=== PATIENT | male | born 1945 | race American Indian/Alaskan Native ===

== ENCOUNTER 2021-08-02 07:06 | Day surgery (SDC) | payer MEDICARE ==
[2021-08-02] MEDS ORDERED: SODIUM CHLORIDE 0.9% 500 ML 500 ML IV SCH (08:00)
[2021-08-02 08:13] LABS: Hematocrit 45.7 % (35.5-45.6); Hemoglobin 14.5 gm/dl (11.8-15.2); Mean Corpuscular HGB Conc 32 % (32-34); Mean Corpuscular Volume 84 fl (84-94); Platelet Count 192 K/mm3 (140-440); Red Blood Count 5.46 M/mm3 (3.65-5.03); Red Cell Distribution Width 15.3 % (13.2-15.2)
[2021-08-02 08:24] LABS: INR 0.92 (0.87-1.13)
[2021-08-02 08:25] LABS: Partial Thromboplastin Time 28.3 Sec. (24.2-36.6)
[2021-08-02 08:26] LABS: Blood Urea Nitrogen 19 mg/dL (9-20); Hemolysis Index 48
[2021-08-02 08:27] LABS: BUN/Creatinine Ratio 32
[2021-08-02] MEDS ORDERED: ceFAZolin/Water 2 GM/20 ML 2 GM/20 ML SYRINGE IV ONE (09:04)
[2021-08-02] MEDS ORDERED: LIDOCAINE 2%/EPINEPHRINE 1:200,000 VIAL (20 ML) INFILTRATI ONE ×2 (09:04→09:45)
[2021-08-02] MEDS ORDERED: HEPARIN/NS 5000 UNIT/500ML 1,500 ML IR ONE (09:05)
--- NOTE | 2021-08-02 09:11 | Short Stay Summary ---
Short Stay Documentation Date of service: 08/02/21 Narrative H&P: 75-year-old male with COPD and PVD with critical limb ischemia of the right lower extremity with nonhealing wound of the right forefoot which has been present for months. Patient presents for revascularization. - History Principal diagnosis: PVD with ulceration H&P: obtained from office - Allergies and Medications Current Medications: Allergies No Known Allergies Allergy (Unverified 08/02/21 07:39) Active Medications Sodium Chloride (Nacl 0.9% 500 Ml) 500 mls @ 50 mls/hr IV DIRECT ARVIN - Physical exam General appearance: no acute distress Lungs: Normal air movement, Other (Minimal wheezing, massive improvement from baseline) Gastrointestinal: normal Extremities: normal temperature, normal color - Brief post op/procedure progress note Date of procedure: 08/02/21 Pre-op diagnosis: PVD with ulceration Post-op diagnosis: same Procedure: 1. Ultrasound guided access of the left common femoral artery 2. Angiography of the left lower extremity 3. Selection of the abdominal aorta with angiography 4. Selection of the right external iliac artery and proximal superficial femoral artery 5. Angiography of the right lower extremity 6. Selection of the right popliteal artery with angiography 7. Fluoroscopic guided placement of a 6 mm spider EPD in the right popliteal artery 8. Shockwave lithoplasty of the right superficial femoral artery and above-knee popliteal artery with a 5 mm x 60 mm balloon 9. Atherectomy of the right proximal, mid and distal superficial femoral artery with a BlueLithiumkone M device 10. Angioplasty of the right superficial femoral artery with a 5 mm x 200 mm [place] angioplasty balloon 11. Angioplasty of the right aoajw-icq-pcqq popliteal artery with a 4 mm x 150 mm [place] angioplasty balloon 12. Closure of the left common femoral artery with manual pressure Anesthesia: local Surgeon: JL HUERTA Estimated blood loss: minimal Condition: stable - Hospital course Hospital course: Sheath was removed and pressure was held until hemostasis was achieved. Pressure dressing applied. Patient kept for 4 hours afterwards without issue. Discharged without issue. 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
[2021-08-02] MEDS ORDERED: MIDAZOLAM 2 MG/2 ML INJ ONE (09:32)
[2021-08-02] MEDS ORDERED: fentaNYL 100 MCG/2 ML INJ ONE (09:32)
[2021-08-02] MEDS: HEPARIN 10,000 UNITS/10 ML VIAL ONE ×2 (09:57→10:46)
--- NOTE | 2021-08-02 11:50 | Operative Report ---
Operative Report Operative Report: EXAM: 1. Ultrasound guided access of the left common femoral artery 2. Angiography of the left lower extremity 3. Selection of the abdominal aorta with angiography 4. Selection of the right external iliac artery and proximal superficial femoral artery 5. Angiography of the right lower extremity 6. Selection of the right popliteal artery with angiography 7. Fluoroscopic guided placement of a 6 mm spider EPD in the right popliteal artery 8. Shockwave lithoplasty of the right superficial femoral artery and above-knee popliteal artery with a 5 mm x 60 mm balloon 9. Atherectomy of the right proximal, mid and distal superficial femoral artery with a Hawkone M device 10. Angioplasty of the right superficial femoral artery with a 5 mm x 200 mm [place] angioplasty balloon 11. Angioplasty of the right exysl-gqt-xyjw popliteal artery with a 4 mm x 150 mm [place] angioplasty balloon 12. 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 DEVICES: 6 mm spider embolic protection device 5 mm x 200 mm [place] angioplasty balloon 4 mm x 150 mm [place] angioplasty balloon 5 mm x 60 mm shockwave angioplasty balloon Hawk 1M device CONTRAST: Please see catheter report for full details. PROCEDURE: The risk, benefits, and alternatives were discussed with the patient and his fa sheri member; written informed consent was obtained. The patient was brought to the angiography suite and the groins were prepped and draped in a sterile fashion. The left common femoral artery was evaluated with ultrasound and there were multiple posterior plaques throughout the length of the vessel. Under direct ultrasound guidance, the left common femoral artery was accessed with a 21-gauge micropuncture needle. 0.018 inch wire was passed into the aorta. Needle was exchanged for transitional dilator. Wire was exchanged for a 0.035 inch wire. Transitional dilator exchanged for 5 [place] sheath. Digital subtraction angiography was performed demonstrating an appropriate puncture, above the bifurcation below the inferior epigastric artery. The left common femoral artery had 20 to 30% stenosis. However ultrasound demonstrated that the stenotic areas were on the posterior wall making the vessel suboptimal for closure. The left profunda femoral artery demonstrates a 70% stenosis after the first few centimeters. Left proximal superficial femoral artery demonstrates 30 to 40% stenosis. The left external iliac artery is patent. The abdominal aorta was selected and digital subtraction angiography was performed. The infrarenal abdominal aorta is patent. The bilateral common iliac arteries have peripheral calcifications resulting in 20 to 30% stenosis. Left internal iliac artery is small with diffuse 50% stenosis. Right internal iliac artery has a proximal 70 to 80% stenosis. The right external iliac artery has a proximal 20% stenosis with the rest of the vessel patent. Right external iliac artery selected in the right superficial femoral artery was selected. Digital subtraction angiography demonstrated patency of the right common femoral artery, with 70% stenosis of the right profundofemoral artery after approximately 5 cm. There is a 5 to 10 cm occlusion in the right proximal superficial femoral artery. Immediately afterwards there is a 90% stenotic le [place] in the right mid superficial femoral artery with diffuse 50% stenosis. Right distal superficial femoral artery has 60 to 70% stenosis. The right obisf-zdo-fzdv popliteal artery has areas of 70% stenosis. The right mid popliteal artery has diffuse 30% stenosis. The right below the knee artery has a distal 70% stenosis. 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 There is heavy collateralization to the proximal anterior tibial artery which surprised the dominant flow to the foot. However, the anterior tibial artery is scattered with 50 to 70% stenosis with a diffusely small vessel. The posterior tibial artery is occluded throughout its course. The tibioperoneal trunk is occluded. There is reconstitution of the peroneal artery from large collaterals which provides the best vessel to the lower extremity. The distal calf and foot was not evaluated with angiography at this time as it has been seen previously on diagnostic imaging. Patient was heparinized. Sheath was exchanged for 6 [place] 45 cm [place] destination positioned in the right proximal superficial femoral artery stump. Multiple wires and catheters were used with there is ultimate crossing of the chronic total occlusion with selection of the distal superficial femoral artery and fjycl-bgr-xzhk popliteal artery. Digital subtraction angiography was performed confirming the above-mentioned findings. 6 mm spider embolic protection device was deployed in the right mid to upper popliteal artery. Shockwave 5 mm x 60 mm angioplasty balloon was used to perform lithotripsy of the entire superficial femoral artery. All of the shocks were used. Afterwards, atherectomy was performed of some residual areas of stenosis in the superficial femoral artery with a Hawk 1M device. After this was performed, 5 mm x 200 mm [place] angioplasty balloon was used to perform angioplasty of the proximal mid and distal superficial femoral artery. Digital subtraction angiography was performed demonstrating prompt flow, but a irregular dissection at the reentry site of the superficial femoral artery. I decided to stent this area. 6 mm x 40 mm stent was then deployed in the right proximal superficial femoral artery over the area of dissection. This was postdilated with a 5 mm x 80 mm angioplasty balloon. Digital subtraction angiography was performed demonstrating less than 20% residual narrowing of the right proximal and distal superficial femoral artery with a 30% residual stenosis of a large calcified portion of the middle superficial femoral artery. I suspected the stent would not improve this angiographic appearance as the calcification was resulting in the narrowing which had proper recoil. 4 mm x 150 mm [place] angioplasty balloon was used to perform angioplasty of the right kqsgs-gag-frls popliteal artery. Digital subtraction angiography demonstrated less than 20% residual stenosis of the right ujusx-etv-idkk popliteal artery. Embolic protection device was then retrieved. Hub was detached and flushed. Digital subtraction angiography was performed demonstrating good flow through the superficial femoral artery and popliteal artery with unchanged tibial runoff. No distal embolization. All wires, catheters, and sheaths were then retracted to the left external iliac artery and the sheath was exchanged for a 6 [place] standard sheath. ACT was obtained demonstrating ACT time of approximately 190. Sheath was secured and would be rechecked for sheath removal hopefully in 1 hour. Patient tolerated the procedure well. No immediate postprocedural complications. FINDINGS: Please see procedure note above IMPRESSION: Successful angioplasty, lipoplasty, atherectomy, and stenting of the right superficial femoral artery and lkffj-dvh-psni popliteal artery.
[2021-08-02] MEDS ORDERED: HYDROcodone/ACETAMINOPHEN 5-325 MG TAB ONE (14:30)
[2021-08-02] MEDS ORDERED: HYDROcodone/ACETAMINOPHEN 5-325 MG TAB PO NR (14:35)
[2021-08-02] MEDS ORDERED: HYDROcodone/ACETAMINOPHEN 5-325 MG TAB PO PRN (14:35)
[2021-08-02 16:44] VITALS: BP 162/74
== END 2021-08-02 07:07 | disposition home or self-care (01) ==
LOC: CATHLABREC 07:06
PROVIDERS: ATTEND Radiology Diagnostic Radiology
DX: I70.235 Atherosclerosis of native arteries of right leg with ulceration of other part of foot (principal); I70.213 Atherosclerosis of native arteries of extremities with intermittent claudication, bilateral legs; J44.9 Chronic obstructive pulmonary disease, unspecified; E78.00 Pure hypercholesterolemia, unspecified; I10 Essential (primary) hypertension; E11.51 Type 2 diabetes mellitus with diabetic peripheral angiopathy without gangrene; Z79.899 Other long term (current) drug therapy; Z79.82 Long term (current) use of aspirin; Z87.891 Personal history of nicotine dependence; Z85.038 Personal history of other malignant neoplasm of large intestine; Z98.890 Other specified postprocedural states; Z83.3 Family history of diabetes mellitus; Z82.49 Family history of ischemic heart disease and other diseases of the circulatory system; Z79.4 Long term (current) use of insulin
CPT/HCPCS: 36415; 75625; 75716; 76937; 80048; 85027; 85610; 85730; C1714; C1725; C1769; C1876; C1884; C1887; C1894; C2623; C9767; J0690; J1644; J2250; J3010; J3490; J7040; Q9967